=== PATIENT | female | born 1990 | race Caucasian/White ===

== ENCOUNTER 2019-07-20 15:15 | Outpatient (RCR) | payer OTHER, SELFPAY ==
--- NOTE | 2019-06-20 16:24 | PT.OIE ---
Current Diagnoses Pelvic and perineal pain (06/15/19) Past Surgical History (Last Updated 01/19/19 @ 18:28 by Otf Stevenson MD) S/P ACL repair (Acute) Visit Care Team Role Provider Type Terrell Hair Attending Provider Non-Staff Primary Care Provider Specialty: Medical Address: [address] [place], [place] [address], [address] Fax: Email: Physical Therapy Initial Evaluation PT-OP-A Visit Information Start: 06/15/19 14:12 Freq: Status: Active Protocol: Document 06/15/19 14:55 [facility] (Rec: 06/15/19 15:29 [facility] [id number]) Out-Patient Physical Therapy Visit Information Visit Information Visit Type Initial Evaluation Visit Start Time 15:15 Visit Stop Time 16:00 Total Visit Minutes 45 Visit Number 1 Evaluation Information Evaluation Date 06/15/19 PT-OP-B Current Condition Start: 06/15/19 14:12 Freq: Status: Active Protocol: Document 06/15/19 14:55 [facility] (Rec: 06/15/19 15:29 [facility] [id number]) Current Condition History of Current Condition Onset Date Pt reports she has had pain with periods since she was 20 Current Complaints increased pain with intercourse, painful periods, frequent UTI History of Current Condition History of pelvic pain, her mother has a history of endometreosis, painful periods and now at times pain with intercourse. Penetration is painfull. Pain is located internal and she doesn't have pain at other times. Future Testing and Treatments Planned pelvic ultrasound to look for signs of endometriosis has been ordered Treatment Goals Patient/Caregiver Goals Goals include eliminating pain with intercourse Current Functional Impairments (Reported) Functional Limitations- Other pain limits intercourse at times PT-OP-F Manual Assessment Start: 06/15/19 14:12 Freq: Status: Active Protocol: Document 06/15/19 15:15 [facility] (Rec: 06/20/19 16:23 [facility] [email or web address]) Manual Assessments Soft Tissue Assessment Soft Tissue Mobility Assessment tightness of the abdominal wall myofascially, tightness over the suprapubic fascia PT-OP-I Pelvic Floor Start: 06/15/19 14:12 Freq: Status: Active Protocol: Document 06/15/19 15:15 [facility] (Rec: 06/20/19 16:21 [facility] [email or web address]) Pelvic Floor Assessment Urine Pelvic Floor Surgery No Urinary Symptoms Pain Other Urinary Symptoms reports a feeling of pelvic pressure only with menstruation Nocturia wakes 1 times per night to void SEMG (uV) Baseline 4 10 Second Contraction 18.4 Recruitment Pattern Good Relaxation Poor/Slow Holding Fair Stability of Hold Fair SEMG Stability of Rest Poor/Slow PT-OP-J Posture/Palpation/Skin Start: 06/15/19 14:12 Freq: Status: Active Protocol: Document 06/15/19 15:15 [facility] (Rec: 06/20/19 16:22 [facility] [email or web address]) Palpation Assessment Location suprapubic region Palpation Location subrapubic region Palpation Findings Soft Tissue Tightness,Muscle Guarding,Tenderness PT-OP-Q Treatments Start: 06/15/19 14:12 Freq: Status: Active Protocol: Document 06/15/19 14:55 [facility] (Rec: 06/15/19 17:14 [facility] [email or web address]) Therapeutic Exercises Supine Exercises 2 Supine Exercise Name contract relax for pelvic floor relaxation Side bilateral Reps/Minutes hold x 5 seconds and relax 10- 20 seconds 5-10 reps total Comments EMG biofeedback used as a assessment 1 Supine Exercise Name pelvic floor squat stretch Side bilateral Comments to help open up the pelvic floor muscles Self-Care/Home Management Treatment Education Patient Education Home Exercise Program Other Education Pt educated on toileting strategies including proper sit to stretch posterior pelvic floor, strategies to fully empty her bladder Pt educated on relaxed awareness of her gluteal musculature at rest PT-OP-T Assessment and Plan Start: 06/15/19 14:12 Freq: Status: Active Protocol: Document 06/15/19 15:15 [facility] (Rec: 06/20/19 16:19 [facility] [email or web address]) Physical Therapy Assessment Rehab Potential Rehabilitation Potential Good Evaluation Complexity Number of Personal Factors/Comorbidities 0 Number of Body Systems Impaired 1-2 Clinical Presentation at Evaluation Stable Impairments Impairments Pain,Soft Tissue Mobility,Tone Goals Three Impairment pt has a impaired voiding schedule avoiding voiding for long stretches Short Term Goal (STG) Pt is educated on bladder retraining and decreasing time between voids to every 3.5-4 hours as at this time Justina states she voids only 2 times per day Two Impairment Pelvic pain worse when menstruating and with intercourse Senior Care Goal (LTG) Justina reports a overall reduction in pelvic pain with stretches and relaxed awareness of her pelvic floor with EMG biofeedback LTG Duration 8 weeks One Impairment hypertonicty of the pelvic floor elevated tone on EMG BIOFEEDBACK Short Term Goal (STG) Justina is given yoga stretches for pelvic pain to begin working on at home to reduce the tension of her pelvic floor STG Duration 4 weeks Fur Vault Attendant Goal (LTG) With relaxed awareness of the pelvic floor Justina is able to fully relax to baseline on EMG biofeedback LTG Duration 8 weeks Assessment Summary Assessment Justina presents to physical therapy today with complaints of painful periods, pelvic pain and pain with intercourse . She actually thought she was here for a shoulder evaluation today so she was not prepared for a pelvic evaluation. She wished to hold off on internal assessment until next visit. Her complaint of pelvic pain has been with her since she was 20 years old. We did evaluate her pelvic floor resting tone today with EMG biofeedback and she was elevated at 4.0 uv. She had several muscles spasms while working on relaxed awareness of her pelvic floor. Her average contraction is 18/4 uv . Justina was educated in stretches for pelvic floor tightness today. Treatment will include further work up of her pelvic floor muscle tone, relaxed awareness of the pelvic floor, stretches for the pelvic floor. Physical Therapy Plan Frequency and Duration Frequency of Treatment 1x/Week Duration of Treatment 8 weeks Plan of Care Start Date 06/15/19 Plan of Care End Date 08/10/19 Therapeutic Interventions Therapeutic Interventions Home Exercise Program,Manual Therapy,Neuromuscular Re- education,Patient/Caregiver Education,Self-Care/Home Management,Soft Tissue Mobilization,Therapeutic Exercises Modalities Biofeedback Next Visit Focus/Plan Next Note Type Treatment Note Next Visit Plan Begin yoga stretches for pelvic pain, review EMG biofeedback relaxed awareness, abdominal massage, pelvic floor evaluation with patient consent.
--- NOTE | 2019-06-20 16:25 | PT.OPPOC ---
Physical, Occupational & Speech Therapy At [facility] Current Diagnoses Pelvic and perineal pain (06/15/19) Visit Care Team Role Provider Type Terrell Hair Attending Provider Non-Staff Primary Care Provider Specialty: Medical [facility] [place], [address] Fax: Email: Plan Of Care PT-OP-T Assessment and Plan Start: 06/15/19 14:12 Freq: Status: Active Protocol: Document 06/15/19 15:15 [facility] (Rec: 06/20/19 16:19 [facility] [email or web address]) Physical Therapy Assessment Rehab Potential Rehabilitation Potential Good Evaluation Complexity Number of Personal Factors/Comorbidities 0 Number of Body Systems Impaired 1-2 Clinical Presentation at Evaluation Stable Impairments Impairments Pain,Soft Tissue Mobility,Tone Goals Three Impairment pt has a impaired voiding schedule avoiding voiding for long stretches Short Term Goal (STG) Pt is educated on bladder retraining and decreasing time between voids to every 3.5-4 hours as at this time Justina states she voids only 2 times per day Two Impairment Pelvic pain worse when menstruating and with intercourse Commissary Worker Goal (LTG) Justina reports a overall reduction in pelvic pain with stretches and relaxed awareness of her pelvic floor with EMG biofeedback LTG Duration 8 weeks One Impairment hypertonicity of the pelvic floor elevated tone on EMG BIOFEEDBACK Short Term Goal (STG) Justina is given yoga stretches for pelvic pain to begin working on at home to reduce the tension of her pelvic floor STG Duration 4 weeks Nursing Home Goal (LTG) With relaxed awareness of the pelvic floor Justina is able to fully relax to baseline on EMG biofeedback LTG Duration 8 weeks Assessment Summary Assessment Justina presents to physical therapy today with complaints of painful periods, pelvic pain and pain with intercourse She actually thought she was here for a shoulder evaluation today so she was not prepared for a pelvic evaluation. She wished to hold off on internal assessment until next visit. Her complaint of pelvic pain has been with her since she was 20 years old. We did evaluate her pelvic floor resting tone today with EMG biofeedback and she was elevated at 4.0 uv. She had several muscles spasms while working on relaxed awareness of her pelvic floor. Her average contraction is 18/4 uv Justina was educated in stretches for pelvic floor tightness today. Treatment will include further work up of her pelvic floor muscle tone, relaxed awareness of the pelvic floor, stretches for the pelvic floor. Physical Therapy Plan Frequency and Duration Frequency of Treatment 1x/Week Duration of Treatment 8 weeks Plan of Care Start Date 06/15/19 Plan of Care End Date 08/10/19 Therapeutic Interventions Therapeutic Interventions Home Exercise Program,Manual Therapy,Neuromuscular Re- education,Patient/Caregiver Education,Self-Care/Home Management,Soft Tissue Mobilization,Therapeutic Exercises Modalities Biofeedback Next Visit Focus/Plan Next Note Type Treatment Note Next Visit Plan Begin yoga stretches for pelvic pain, review EMG biofeedback relaxed awareness, abdominal massage, pelvic floor evaluation with patient consent. Plan of Care Dates Plan of Care Start Date 06/15/19 Plan of Care End Date 08/10/19 Electronically Signed by: Antoinette Blackwell, PT 06/20/19 4429 Please Sign and Return: I have reviewed this Plan of Care and certify that the skilled therapy services above are required to meet the patient?s needs. Physician Signature Date Printed Name and Credentials Clinical Instructor Signature Printed Name and Credentials
--- NOTE | 2019-07-06 15:15 | PT.OTN ---
Current Diagnoses Pelvic and perineal pain (07/06/19) Physical Therapy Treatment Note PT-OP-A Visit Information Start: 06/15/19 14:12 Freq: Status: Active Protocol: Document 07/06/19 15:15 [facility] (Rec: 07/12/19 13:23 [facility] [email or web address]) Out-Patient Physical Therapy Visit Information Visit Information Visit Type Treatment Note Visit Start Time 15:15 Visit Stop Time 16:00 Total Visit Minutes 45 Visit Number 2 PT-OP-B Current Condition Start: 06/15/19 14:12 Freq: Status: Active Protocol: Document 06/15/19 14:55 [facility] (Rec: 06/15/19 15:29 [facility] [id number]) Current Condition History of Current Condition Onset Date Pt reports she has had pain with periods since she was 20 Current Complaints increased pain with intercourse, painful periods, frequent UTI History of Current Condition History of pelvic pain, her mother has a history of endometreosis, painful periods and now at times pain with intercourse. Penetration is painfull. Pain is located internal and she doesn't have pain at other times. Future Testing and Treatments Planned pelvic ultrasound to look for signs of endometriosis has been ordered Treatment Goals Patient/Caregiver Goals Goals include eliminating pain with intercourse Current Functional Impairments (Reported) Functional Limitations- Other pain limits intercourse at times PT-OP-C Subjective Start: 06/15/19 14:12 Freq: Status: Active Protocol: Document 07/06/19 15:15 [facility] (Rec: 07/12/19 13:23 [facility] [email or web address]) OP-PT Subjective Patient Comments Patient Comments pt report she is feeling better about voiding and feeling like she is emptying her bladder better. She has not had any symptoms of a UTI this past week PT-OP-F Manual Assessment Start: 06/15/19 14:12 Freq: Status: Active Protocol: Document 06/15/19 15:15 [facility] (Rec: 06/20/19 16:23 [facility] [email or web address]) Manual Assessments Soft Tissue Assessment Soft Tissue Mobility Assessment tightness of the abdominal wall myofascially, tightness over the suprapubic fascia PT-OP-I Pelvic Floor Start: 06/15/19 14:12 Freq: Status: Active Protocol: Document 06/15/19 15:15 [facility] (Rec: 06/20/19 16:21 [facility] [email or web address]) Pelvic Floor Assessment Urine Pelvic Floor Surgery No Urinary Symptoms Pain Other Urinary Symptoms reports a feeling of pelvic pressure only with menstruation Nocturia wakes 1 times per night to void SEMG (uV) Baseline 4 10 Second Contraction 18.4 Recruitment Pattern Good Relaxation Poor/Slow Holding Fair Stability of Hold Fair SEMG Stability of Rest Poor/Slow PT-OP-J Posture/Palpation/Skin Start: 06/15/19 14:12 Freq: Status: Active Protocol: Document 06/15/19 15:15 [facility] (Rec: 06/20/19 16:22 [facility] [email or web address]) Palpation Assessment Location suprapubic region Palpation Location subrapubic region Palpation Findings Soft Tissue Tightness,Muscle Guarding,Tenderness PT-OP-Q Treatments Start: 06/15/19 14:12 Freq: Status: Active Protocol: Document 07/06/19 15:15 [facility] (Rec: 07/12/19 13:23 [facility] [email or web address]) Manual Therapy Treatment Soft Tissue Mobilization 2 Body Location left obturator release Mobilization Type Myofascial Release Body Position Sidelying Comments left sidelying MFR of the obturator internus 1 Body Location anterior abdominal fascia Comments MFR of the anterior abdominal fascia and suprapubic region Manual Techniques 1 Type manual assessment of pelvic floor strength and tissue tightness Comments hypertonicity left greater than right illiococcygues and coccygeus musculature Self-Care/Home Management Treatment Education Patient Education Home Exercise Program Other Education pt given a size extra small dilator and instructed in self massage for the posterior lateral wall of the levator ani PT-OP-T Assessment and Plan Start: 06/15/19 14:12 Freq: Status: Active Protocol: Document 07/06/19 15:15 [facility] (Rec: 07/12/19 13:23 [facility] [email or web address]) Physical Therapy Assessment Assessment Summary Assessment hypertonic musculatre with difficulty relaxing the pelvic floor once it has been contracted. Will focus on release of the pelvic floor prior to contract relax of the pelvic floor as this seemed to aggravate symptoms. Justina is also tight and guarded in her abdominal fascia. She was given a dilator for home to begin self stretching and massage Physical Therapy Plan Frequency and Duration Frequency of Treatment 1x/Week Duration of Treatment 8 weeks Next Visit Focus/Plan Next Note Type Treatment Note Next Visit Plan Review dilator use, MFR techniques, yoga for pelvic pain and down training of the pelvic floor
--- NOTE | 2019-07-25 10:20 | PT.OTN ---
Current Diagnoses Pelvic and perineal pain (07/20/19) Physical Therapy Treatment Note PT-OP-A Visit Information Start: 06/15/19 14:12 Freq: Status: Active Protocol: Document 07/20/19 15:15 [facility] (Rec: 07/25/19 10:18 [facility] [email or web address]) Out-Patient Physical Therapy Visit Information Visit Information Visit Type Treatment Note Visit Start Time 15:15 Visit Stop Time 16:00 Total Visit Minutes 45 Visit Number 3 PT-OP-B Current Condition Start: 06/15/19 14:12 Freq: Status: Active Protocol: Document 06/15/19 14:55 [facility] (Rec: 06/15/19 15:29 [facility] [id number]) Current Condition History of Current Condition Onset Date Pt reports she has had pain with periods since she was 20 Current Complaints increased pain with intercourse, painful periods, frequent UTI History of Current Condition History of pelvic pain, her mother has a history of endometreosis, painful periods and now at times pain with intercourse. Penetration is painfull. Pain is located internal and she doesn't have pain at other times. Future Testing and Treatments Planned pelvic ultrasound to look for signs of endometriosis has been ordered Treatment Goals Patient/Caregiver Goals Goals include eliminating pain with intercourse Current Functional Impairments (Reported) Functional Limitations- Other pain limits intercourse at times PT-OP-C Subjective Start: 06/15/19 14:12 Freq: Status: Active Protocol: Document 07/20/19 15:22 [facility] (Rec: 07/20/19 15:27 [facility] [id number]) OP-PT Subjective Patient Comments Patient Comments pt reports she frequently throughout the day thinks about relaxing her pelvic floor, she has had no UTI's and is able to have improved voiding. [place] is still painful PT-OP-F Manual Assessment Start: 06/15/19 14:12 Freq: Status: Active Protocol: Document 06/15/19 15:15 [facility] (Rec: 06/20/19 16:23 [facility] [email or web address]) Manual Assessments Soft Tissue Assessment Soft Tissue Mobility Assessment tightness of the abdominal wall myofascially, tightness over the suprapubic fascia PT-OP-I Pelvic Floor Start: 06/15/19 14:12 Freq: Status: Active Protocol: Document 06/15/19 15:15 [facility] (Rec: 06/20/19 16:21 [facility] [email or web address]) Pelvic Floor Assessment Urine Pelvic Floor Surgery No Urinary Symptoms Pain Other Urinary Symptoms reports a feeling of pelvic pressure only with menstruation Nocturia wakes 1 times per night to void SEMG (uV) Baseline 4 10 Second Contraction 18.4 Recruitment Pattern Good Relaxation Poor/Slow Holding Fair Stability of Hold Fair SEMG Stability of Rest Poor/Slow PT-OP-J Posture/Palpation/Skin Start: 06/15/19 14:12 Freq: Status: Active Protocol: Document 06/15/19 15:15 [facility] (Rec: 06/20/19 16:22 [facility] [email or web address]) Palpation Assessment Location suprapubic region Palpation Location subrapubic region Palpation Findings Soft Tissue Tightness,Muscle Guarding,Tenderness PT-OP-Q Treatments Start: 06/15/19 14:12 Freq: Status: Active Protocol: Document 07/20/19 15:15 [facility] (Rec: 07/25/19 10:20 [facility] [email or web address]) Manual Therapy Treatment Soft Tissue Mobilization 3 Body Location internal levator ani release of the lateral illiococcygeus and coccygeus Mobilization Type Myofascial Release Body Position Supine Comments pt consent prior to treatment 2 Body Location left obturator release Mobilization Type Myofascial Release Body Position Sidelying Comments left sidelying MFR of the obturator internus 1 Body Location anterior abdominal fascia Comments MFR of the anterior abdominal fascia and suprapubic region PT-OP-T Assessment and Plan Start: 06/15/19 14:12 Freq: Status: Active Protocol: Document 07/20/19 15:22 [facility] (Rec: 07/20/19 15:27 [facility] [id number]) Physical Therapy Assessment Assessment Summary Assessment Pt aggreed to internal levator ani release due to her pelvic pain with intercourse. Worked today on the left lateral wall of the levator ani as well as the coccygeus muscles. Also gave Justina a larger size dilator for stretching as well as continueing to use the xsmall one for trigger point release Physical Therapy Plan Frequency and Duration Frequency of Treatment 1x/Week Duration of Treatment 8 weeks Plan of Care Start Date 06/15/19 Plan of Care End Date 08/10/19 Therapeutic Interventions Therapeutic Interventions Home Exercise Program,Manual Therapy,Neuromuscular Re- education,Patient/Caregiver Education,Self-Care/Home Management,Soft Tissue Mobilization,Therapeutic Exercises Modalities Biofeedback Next Visit Focus/Plan Next Note Type Treatment Note Next Visit Plan Recheck pelvic floor resting tone next visit on EMG biofeedback. Review success of dilator use for home
--- NOTE | 2020-01-29 10:23 | PT.OPDS ---
Current Diagnoses Pelvic and perineal pain (07/20/19) Visit Care Team Role Provider Type Terrell Hair Attending Provider Non-Staff Primary Care Provider Specialty: Medical Address: [address] [place] [address], [id number] Email: Visit Number Visit Number 3 Discharge Summary PT-OP-B Current Condition Start: 06/15/19 14:12 Freq: Status: Active Protocol: Document 06/15/19 14:55 [facility] (Rec: 06/15/19 15:29 [facility] [id number]) Current Condition History of Current Condition Onset Date Pt reports she has had pain with periods since she was 20 Current Complaints increased pain with intercourse, painful periods, frequent UTI History of Current Condition History of pelvic pain, her mother has a history of endometreosis, painful periods and now at times pain with intercourse. Penetration is painfull. Pain is located internal and she doesn't have pain at other times. Future Testing and Treatments Planned pelvic ultrasound to look for signs of endometriosis has been ordered Treatment Goals Patient/Caregiver Goals Goals include eliminating pain with intercourse Current Functional Impairments (Reported) Functional Limitations- Other pain limits intercourse at times PT-OP-C Subjective Start: 06/15/19 14:12 Freq: Status: Active Protocol: Document 07/20/19 15:22 [facility] (Rec: 07/20/19 15:27 [facility] [id number]) OP-PT Subjective Patient Comments Patient Comments pt reports she frequently throughout the day thinks about relaxing her pelvic floor, she has had no UTI's and is able to have improved voiding. [place] is still painful PT-OP-F Manual Assessment Start: 06/15/19 14:12 Freq: Status: Active Protocol: Document 06/15/19 15:15 [facility] (Rec: 06/20/19 16:23 [facility] [email or web address]) Manual Assessments Soft Tissue Assessment Soft Tissue Mobility Assessment tightness of the abdominal wall myofascially, tightness over the suprapubic fascia PT-OP-I Pelvic Floor Start: 06/15/19 14:12 Freq: Status: Active Protocol: Document 06/15/19 15:15 [facility] (Rec: 06/20/19 16:21 [facility] [email or web address]) Pelvic Floor Assessment Urine Pelvic Floor Surgery No Urinary Symptoms Pain Other Urinary Symptoms reports a feeling of pelvic pressure only with menstruation Nocturia wakes 1 times per night to void SEMG (uV) Baseline 4 10 Second Contraction 18.4 Recruitment Pattern Good Relaxation Poor/Slow Holding Fair Stability of Hold Fair SEMG Stability of Rest Poor/Slow PT-OP-J Posture/Palpation/Skin Start: 06/15/19 14:12 Freq: Status: Active Protocol: Document 06/15/19 15:15 [facility] (Rec: 06/20/19 16:22 [facility] [email or web address]) Palpation Assessment Location suprapubic region Palpation Location subrapubic region Palpation Findings Soft Tissue Tightness,Muscle Guarding,Tenderness PT-OP-T Assessment and Plan Start: 06/15/19 14:12 Freq: Status: Active Protocol: Document 01/29/20 10:20 [facility] (Rec: 01/29/20 10:23 [facility] [email or web address]) Physical Therapy Assessment Assessment Summary Assessment Justina was seen for 3 visits in PT for pelvic pain. Her care was stopped due to the Covid 19 pandemic. She has not returned calls to resume PT once our clinic has reopened. She will be discharged from PT today. Physical Therapy Plan Discharge Physical Therapy Discharge Reasons No Longer Attending PT
== END 2020-01-30 11:37 ==
LOC: PHYS 15:15
PROVIDERS: PCP Student in an Organized Health Care Education/Training Program; Visit Provider Student in an Organized Health Care Education/Training Program
DX: R10.2 Pelvic and perineal pain (principal)
CPT/HCPCS: 97140; 97161; 97535